=== PATIENT | male | born 1970 | race Caucasian/White ===

== ENCOUNTER → 2019-08-05 | Outpatient (CLI) | payer MEDICARE ==
--- NOTE | 2019-08-05 10:30 | RAD ---
Ultrasound of the abdomen 08/05/2019 CLINICAL HISTORY: Right upper quadrant abdominal pain. Nausea and vomiting. TECHNIQUE: A real-time ultrasound examination of the abdomen was performed. Multiple images were obtained. FINDINGS: The gallbladder is contracted and filled with echogenic gallstones. The gallbladder wall thickness is difficult to evaluate due to the contracted nature of the gallbladder. No pericholecystic fluid is seen. The liver is mildly enlarged measuring 21.1 cm in length. Increased echogenicity of the liver parenchyma is seen consistent with fatty infiltration. The common bile duct is not visualized due to the patient's body habitus and overlying bowel gas. No intra or extrahepatic biliary ductal dilatation is seen. The spleen is normal in size measuring 12.9 cm in length. Both kidneys are within normal limits in size and echogenicity. The pancreas is not well evaluated due to overlying bowel gas. The visualized abdominal aorta tapers normally. The inferior vena cava is within normal limits. No free fluid is seen. IMPRESSION: 1. Cholelithiasis. 2. Mild hepatomegaly. Fatty infiltration of the liver. Electronically signed by: Rolo Eckert MD (08/05/2019 10:27 AM) [id number]
== END | disposition home or self-care (01) ==
LOC: US 09:47
PROVIDERS: ATTEND Physician Assistant
DX: K80.20 Calculus of gallbladder without cholecystitis without obstruction (principal); K76.0 Fatty (change of) liver, not elsewhere classified; R16.0 Hepatomegaly, not elsewhere classified
CPT/HCPCS: 76700

== ENCOUNTER 2019-10-14 11:22 | Emergency (ER) | payer MEDICARE ==
[~2019-10-14] VITALS: Ht 167.6 cm; Wt 88.0 kg
[2019-10-14] MEDS ORDERED: ONDANSETRON PF 4 MG/2 ML VIAL. IVP ONE (11:45)
[2019-10-14] MEDS ORDERED: FAMOTIDINE 20 MG/2 ML VIAL IVP ONE (11:45)
[2019-10-14] MEDS ORDERED: MVI, ADULT NO.4 WITH VIT K 10 ML, FOLIC ACID INJ 1 MG, THIAMINE INJ 100 MG in IV NORMAL... IV ONE ×4 (12:00)
--- NOTE | 2019-10-14 12:06 | PHYS DOC ---
General Adult EDM: Chief Complaint: NAUSEA/VOMITING/DIARRHEA HPI: HPI: 49-year-old male presents to the emergency department for tremors, nausea, vomiting, abdominal pain. Patient has recent history of gallbladder surgeries, stopping alcohol use, stopping other medication abuse. The patient was extremel y agitated at his home which frightened his . His called the police to come and help bring the patient to the emergency department because of his extremely high state of agitation and anxiety. Please accompanied the patient and his to the emergency department with the patient without custody. Presentation emergency department the patient is extremely anxious and tr emulous. He has vomited multiple times emergency department. He is extremely emotional with labile and tearful. He is accompanied by his who is also anxious. The patient complains of abdominal pain as well is most significant upon palpation. Patient states that he has not been able to keep any food down for the past 5 hours. Patient has no COVID-19 symptoms, but refuses to wear a mask. Patient has no previous seizures from alcohol withdrawal. Patient's last drink was last night, he does not state the exact amount that he drank last night. Patient repeatedly states that his "life is a wreck ". Review of Systems: Review of Systems: Constitutional: Patient is tremulous and anxious Eyes: Denies redness or eye pain HENT: Denies nasal congestion or sore throat Respiratory: Denies cough or shortness of breath Cardiovascular: Denies chest pain or palpitations GI: Reports abdominal pain : Denies dysuria or hematuria Musculoskeletal: Denies back pain or joint pain Integument: Denies rash or skin lesions Neurologic: Denies headache, focal weakness or sensory changes Complete systems were reviewed and found to be within normal limits, except as documented in this note. Current Medications: Current Meds: Current Medications Medications (Trade) Dose Ordered Sig/Sybil Start Time Stop Time Status Last Admin Dose Admin Famotidine (Pepcid Vial) 20 mg 1X ONCE 10/14/19 11:45 10/14/19 11:54 DC 10/14/19 11:48 20 MG Lorazepam (Ativan Inj) 0.5 mg 1X ONCE 10/14/19 12:00 10/14/19 12:01 Multivitamins/ Minerals 10 ml/ Folic Acid 1 mg/ Thiamine HCl 100 mg/Sodium Chloride 1,011.3 ml @ 1,000.187 mls/hr 1X ONCE 10/14/19 12:00 10/14/19 13:00 Ondansetron HCl (Zofran) 4 mg 1X ONCE 10/14/19 11:45 10/14/19 11:54 DC 10/14/19 11:48 4 MG Allergies: Allergies: Allergies Coded Allergies Type Severity Reaction Last Updated Verified shellfish derived Allergy Unknown 10/14/19 Yes Physical Exam: PE: Constitutional: Well developed, well nourished, no acute distress, non-toxic appearance. [] HENT: Normocephalic, atraumatic, bilateral external ears normal, oropharynx moist, no oral exudates, nose normal. [] Eyes: PERRLA, EOMI, conjunctiva normal, no discharge. [] Neck: Normal range of motion, no tenderness, supple, no stridor. [] Cardiovascular:Heart rate regular rhythm, no murmur [] Lungs & Thorax: Bilateral breath sounds clear to auscultation [] Abdomen: Bowel sounds normal, soft, no tenderness, no masses, no pulsatile masses. [] Skin: Warm, dry, no erythema, no rash. [] Back: No tenderness, no CVA tenderness. [] Extremities: No tenderness, no cyanosis, no clubbing, ROM intact, no edema. [] Neurologic: Alert and oriented X 3, normal motor function, normal sensory function, no focal deficits noted. [] Psychologic: Affect normal, judgement normal, mood normal. [] EKG: EKG: @1149, normal sinus rhythm, sinus tachycardia at 131 bpm. QRS paced 78, QT / QTC is 296/442. IA interval is 146 Radiology/Procedures: Radiology/Procedures: [] Course & Med Decision Making: Course & Med Decision Making Pertinent Labs and Imaging studies reviewed. (See chart for details) [] Dragon Disclaimer: Dragon Disclaimer: This electronic medical record was generated, in whole or in part, using a voice recognition dictation system. Departure Departure: Impression: Primary Impression: Alcohol abuse Additional Impressions: Anxiety Abdominal pain Qualified Codes: R10.84 - Generalized abdominal pain Nausea & vomiting Qualified Codes: R11.2 - Nausea with vomiting, unspecified Disposition: 01 HOME/RESIDENCE PRIOR TO ADM Condition: STABLE Referrals: SUZANNE PHILLIPS (PCP) BERNARD LA MD Patient Instructions: Abdominal Pain, Detz-dg-Mkye, Alcohol Withdrawal, Dwex-jc-Ecab, Nausea and Vomiting, Zczu-rt-Uxyg, Substance Abuse-Brief Scripts Chlordiazepoxide Hcl (CHLORDIAZEPOXIDE HCL) 25 Mg Capsule 25 MG PO DIRECTION for Alcohol withdrawal, #15 CAP Day 1: Take 50mg PO QID Day 2: Take 25mg PO QID Day 3: Take 25mg PO BID Day 4: Take 25mg QHS Prov: KARRIE PRATT DO 10/14/19 Pantoprazole Sodium (PROTONIX) 40 Mg Tablet.dr 1 TAB PO DAILY for Gastritis, #20 TAB Prov: KARRIE PRATT DO 10/14/19 Ondansetron (ONDANSETRON ODT) 4 Mg Tab.rapdis 1 TAB PO PRN Q6-8HRS PRN for NAUSEA, #16 TAB Prov: KARRIE PRATT DO 10/14/19 Justification of Admission: Justification of Admission: Justification of Admission Dx: N/A KARRIE PRATT DO Oct 14, 2019 12:06
[2019-10-14 12:34] LABS: BASO % 1 % (0-3); EOS % 0 % (0-3); HEMATOCRIT 50.3 % (39.0-53.0); HEMOGLOBIN 17.4 g/dL (13.0-17.5); LYMPH % 27 % (24-48); MEAN CORPUSCULAR HEMOGLOBIN 33 pg (25-35); MEAN CORPUSCULAR HGB CONC 35 g/dL (31-37); MEAN CORPUSCULAR VOLUME 94 fL (79-100); MONO # 0.3 x10^3/uL (0.0-1.1); MONO % 9 % (0-9); NEUT # 2.4 x10^3uL (1.8-7.7); NEUT % 63 % (31-73); PLATELET COUNT 242 x10^3/uL (140-400); RED BLOOD COUNT 5.34 x10^6/uL (4.30-5.70); RED CELL DISTRIBUTION WIDTH 16.5 % (11.5-14.5); WHITE BLOOD COUNT 3.8 x10^3/uL (4.0-11.0)
[2019-10-14 12:37] LABS: CALCIUM 8.8 mg/dL (8.5-10.1); CREATININE 1.2 mg/dL (0.7-1.3); GFR 64.1; POTASSIUM 3.7 mmol/L (3.5-5.1)
[2019-10-14 12:49] LABS: AMPHETAMINE/METHAMPHETAMINE NEG (NEG); BARBITURATES NEG (NEG); BENZODIAZEPINES NEG (NEG); CANNABINOIDS POS (NEG); COCAINE NEG (NEG); METHADONE NEG (NEG); OPIATES NEG (NEG); PHENCYCLIDINE NEG (NEG)
[2019-10-14 12:53] LABS: ALBUMIN 4.2 g/dL (3.4-5.0); ALBUMIN/GLOBULIN RATIO 1.1 (1.0-1.7); TOTAL BILIRUBIN 0.9 mg/dL (0.2-1.0); TOTAL PROTEIN 7.9 g/dL (6.4-8.2)
[2019-10-14 12:57] LABS: BILIRUBIN,URINE NEG (NEG); CLARITY,URINE HAZY; COLOR,URINE AMBER; GLUCOSE,URINE NEG (NEG); NITRITE,URINE NEG (NEG); UROBILINOGEN,URINE 0.2 mg/dL (0.2 mg/dL)
[2019-10-14 12:58] LABS: BACTERIA,URINE FEW /HPF (0-FEW); GRANULAR CASTS,URINE OCC /HPF; HYALINE CASTS, URINE MOD /HPF; SQUAMOUS EPITHELIAL CELL,UR FEW /LPF
--- NOTE | 2019-10-14 13:08 | RAD ---
EXAM: CT ABDOMEN/PELVIS WITHOUT CONTRAST. HISTORY: Abdominal pain. TECHNIQUE: Computed tomography of the abdomen and pelvis was performed without intravenous contrast. One or more of the following individualized dose reduction techniques were utilized for this examination: 1. Automated exposure control. 2. Adjustment of the mA and/or kV according to patient size. 3. Use of iterative reconstruction technique. COMPARISON: None. FINDINGS: Lung windows through the visualized portions of the bases reveal mild bronchial wall thickening in the bases. Bone windows reveal no suspicious lesions. Changes of disc replacement are noted at L4-5 and L5-S1. The gallbladder is surgically absent. Multiple calcifications lateral to the descending portion of the duodenum suggest stones within the cystic duct or extraluminal stones. Others are seen posterior to the caudate lobe. Diffuse hepatic steatosis is severe. The pancreas, spleen, adrenal glands and kidneys are unremarkable. There are no pathologically enlarged lymph nodes. Fat density within the wall of the ascending and transverse colon suggests chronic inflammation. There is no small bowel obstruction. The appendix is not inflamed. 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 IMPRESSION: 1. Findings consistent with retained gallstones within either the cystic duct, versus within the cholecystectomy bed. Others are posterior to the caudate lobe. 2. Severe diffuse hepatic steatosis. 3. Fatty infiltration of the ascending and transverse colon is nonspecific but may reflect chronic inflammation. Electronically signed by: Justus Alston MD (10/14/2019 1:06 PM) [id number]
[2019-10-14 13:40] VITALS: BP 139/95
[2019-10-14] MEDS ORDERED: CHLO25CA9 PO (14:07)
[2019-10-14] MEDS ORDERED: ONDA4TAB12 PO (14:07)
[2019-10-14] MEDS ORDERED: PANT40TA3 PO (14:07)
--- NOTE | 2019-10-14 15:38 | EKG ---
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
== END 2019-10-14 14:14 | disposition home or self-care (01) ==
LOC: ER 11:22
DX: F10.20 Alcohol dependence, uncomplicated (principal); F41.9 Anxiety disorder, unspecified; R10.84 Generalized abdominal pain; R11.2 Nausea with vomiting, unspecified; Z91.013 Allergy to seafood; Y90.8 Blood alcohol level of 240 mg/100 ml or more
CPT/HCPCS: 36415; 74176; 80053; 80307; 81001; 82553; 83690; 84484; 85025; 85610; 85730; 93005; 96365; 96375; 96376; 99285; G0480; J2060; J2405; J3490; J7030

== ENCOUNTER 2020-05-02 11:31 | Emergency (ER) | payer MEDICARE ==
[~2020-05-02] VITALS: Ht 167.6 cm; Wt 97.8 kg
[~2020-05-02 11:31] MED LIST: CHLO25CA9 PO; ONDA4TAB12 PO; PANT40TA3 PO
--- NOTE | 2020-05-02 12:26 | PHYS DOC ---
Past History Past Medical History: Alcoholism, Diabetes, GERD, Hypertension, Hyperthyroid Past Surgical History: Cholecystectomy Additional Past Surgical Histo: knee, back Smoking: Non-smoker Alcohol Use: Heavy Drug Use: Marijuana General Adult EDM: Chief Complaint: SHORTNESS OF BREATH HPI: HPI: Patient is a 49-year-old male who presents with cough, body aches, intermittent shortness of breath for the last 8 days. Patient states he tested positive for Covid 8 days ago. Patient reports symptoms are worse in the morning and has been taking Aleve and DayQuil for symptom relief. Denies nausea/vomiting/diarrhea. Denies chest pain. Review of Systems: Review of Systems: Constitutional: Denies fever or chills Eyes: Denies change in visual acuity HENT: Denies nasal congestion or sore throat Respiratory: Reports productive cough and intermittent shortness of breath Cardiovascular: Denies chest pain or edema GI: Denies abdominal pain, nausea, vomiting, bloody stools or diarrhea : Denies dysuria Musculoskeletal: Denies back pain or joint pain Integument: Denies rash Neurologic: Denies headache, focal weakness or sensory changes Endocrine: Denies polyuria or polydipsia Lymphatic: Denies swollen glands Psychiatric: Denies depression or anxiety Allergies: Allergies: Allergies Coded Allergies Type Severity Reaction Last Updated Verified shellfish derived Allergy Unknown 10/14/19 Yes Physical Exam: PE: Constitutional: Well developed, well nourished, no acute distress, non-toxic appearance. [] HENT: Normocephalic, atraumatic, bilateral external ears normal, oropharynx moist, no oral exudates, nose normal. [] Eyes: PERRLA, EOMI, conjunctiva normal, no discharge. [] Neck: Normal range of motion, no tenderness, supple, no stridor. [] Cardiovascular:Heart rate regular rhythm, no murmur [] Lungs & Thorax: Bilateral breath sounds clear to auscultation [] Abdomen: Bowel sounds normal, soft, no tenderness, no masses, no pulsatile masses. [] Skin: Warm, dry, no erythema, no rash. [] Back: No tenderness, no CVA tenderness. [] Extremities: No tenderness, no cyanosis, no clubbing, ROM intact, no edema. [] Neurologic: Alert and oriented X 3, normal motor function, normal sensory funct ion, no focal deficits noted. [] Psychologic: Affect normal, judgement normal, mood normal. [] Current Patient Data: Labs: Laboratory Tests Test 05/02/20 12:19 Glucose (Fingerstick) 110 mg/dL (70-99) H Vital Signs: Vital Signs Date Time Temp Pulse Resp B/P (MAP) Pulse Ox O2 Delivery O2 Flow Rate FiO2 05/02/20 12:07 97.8 81 16 133/87 (102) 98 Room Air EKG: EKG: [] Radiology/Procedures: Radiology/Procedures: []XR CHEST 1V History: Reason: DIZZINESS / Spl. Instructions: / History: Comparison: April 15, 2017 Findings: Multifocal ill-defined opacities bilaterally. No pleural effusion. No pneumotho rax. Normal heart size. Impression: 1. Multifocal ill-defined opacities bilaterally, concerning for pneumonia including viral pneumonia. Recommend follow-up to ensure resolution. Electronically signed by: Dino Powers DO (05/02/2020 1:24 PM) [facility] EXAM: CT angiography of the chest with intravenous contrast. HISTORY: Shortness of breath. Cough. TECHNIQUE: Computed tomographic images of the chest were obtained following the administration of intravenous contrast according to angiography protocol. Multiplanar reformatting was performed and three dimensional maximum intensity projection images were obtained. *One or more of the following individualized dose reduction techniques were utilized for this examination: 1. Automated exposure control. 2. Adjustment of the mA and/or kV according to patient size. 3. Use of iterative reconstruction technique. COMPARISON: 04/15/2017. FINDINGS: There is no convincing pulmonary embolism. Evaluation for distal pulmonary emboli is limited due to motion. The heart is normal in size. The aorta is normal in caliber. There are prominent mediastinal and bilateral hilar lymph nodes. These are likely reactive in etiology given presence of multifocal groundglass infiltrate within the bilateral upper and lower lobes and right middle lobe. There is no pleural effusion or pneumothorax. There is no acute finding involving the upper abdomen. The spleen is mildly enlarged. The gallbladder is absent. There is no suspicious osseous lesion. IMPRESSION: 1. No convincing pulmonary emphysema. Evaluation for distal pulmonary emboli is limited due to motion. 2. Scattered groundglass infiltrate throughout both lungs. This likely due to atypical pneumonia. Follow-up to confirm resolution. 3. Suspected reactive mediastinal and hilar lymphadenopathy. 4. Mild splenomegaly. This may be within physiologic limits for patient body habitus. Electronically signed by: Dionne Jimenez MD (05/02/2020 2:20 PM) [id number] Heart Score: C/O Chest Pain: No Risk Factors: Risk Factors: DM, Current or recent (<one month) smoker, HTN, HLP, family history of CAD, obesity. Risk Scores: Score 0 - 3: 2.5% MACE over next 6 weeks - Discharge Home Score 4 - 6: 20.3% MACE over next 6 weeks - Admit for Clinical Observation Score 7 - 10: 72.7% MACE over next 6 weeks - Early Invasive Strategies Course & Med Decision Making: Course & Med Decision Making Pertinent Labs and Imaging studies reviewed. (See chart for details) Chest x-ray shows multifocal ill-defined opacities bilaterally. No pleural effusion. No pneumothorax. D-dimer 0.74. CTA ordered to rule out PE. CTA is negative for PE. Sending patient home with antibiotic for pneumonia and Medrol Dosepak. Patient to continue to treat symptoms at home ibuprofen and Mucinex. Patient is to return to emergency room with worsening symptoms or concerns. Patient is hemodynamically stable. Dragon Disclaimer: José Manuel Disclaimer: This electronic medical record was generated, in whole or in part, using a voice recognition dictation system. Departure Departure: Impression: Primary Impression: Pneumonia Qualified Codes: J18.9 - Pneumonia, unspecified organism Additional Impression: COVID-19 Disposition: 01 DC HOME SELF CARE/HOMELESS Condition: STABLE Referrals: SUZANNE PHILLIPS (PCP) Patient Instructions: Pneumonia, Adult Additional Instructions: You were seen in the emergency room today for a Covid and a cough. Continue to take ibuprofen at home for discomfort. I am sending you home with antibiotics and also steroids. If you have an increase in shortness of breath or have worsening symptoms please return to the emergency room. Otherwise you may follow-up with your PCP. EMERGENCY DEPARTMENT GENERAL DISCHARGE INSTRUCTIONS Thank you for coming to [facility] (ED) today and trusting us with you care. We trust that you had a positivie experience in our Emergency Department. If you wish to speak to the department management, you may call the director at [phone]. YOUR FOLLOW UP INSTRUCTIONS ARE FOLLOWS: 1. Do you have a private Doctor? If you do not have a private doctor, please ask for a resource list of physicians or clinics that may be able to assist you with follow up care. 2. The Emergency Physician has interpreted your x-rays. The X-Ray specialist will also review them. If there is a change in the findings, you will be notified in 48 hours when at all possible. 3. A lab test or culture has been done, your results will be reviewed and you will be notified if you need a change in treatment. ADDITIONAL INSTRUCTIONS AND INFORMATION: 1. Your care today has been supervised by a physician who is specially trained in emergency care. Many problems require more than one evaluation for a complete diagnosis and treatment. We recommend that you schedule your follow up appointment as recommended to ensure complete treatment of you illness or injury. If you are unable to obtain follow up care and continue to have a problem, or if your condition worsens, we recommend that you return to the ED. 2. We are not able to safely determine your condition over the phone nor are we able to give sound medical advice over the phone. For these safety reasons, if you call for medical advice we will ask you to come to the ED for further evaluation. 3. If you have any questions regarding these discharge instructions please call the ED at [phone]. SAFETY INFORMATION: In the interest of safety, wellness, and injury prevention; we encourage you to wear your sealbelt, if you smoke; quite smoking, and we encourage family to use a protective helmet for bicycling and other sporting events that present an increased risk for head injury. IF YOUR SYMPTOMS WORSEN OR NEW SYMPTOMS DEVELOP, OR YOU HAVE CONCERNS ABOUT YOUR CONDITION; OR IF YOUR CONDITION WORSENS WHILE YOU ARE WAITING FOR YOUR FOLLOW UP APPOINTMENT; EITHER CONTACT YOUR PRIMARY CARE DOCTOR, THE PHYSICIAN WHOSE NAME AND NUMBER YOU WERE GIVEN, OR RETURN TO THE ED IMMEDIATELY. Scripts Methylprednisolone (MEDROL) 4 Mg Tab.ds.pk 1 PKG PO UD for inflammation for 6 Days, #1 PKG 0 Refills Prov: EMMA SHELLEY APRN 05/02/20 Amoxicillin/Potassium Clav (AMOX TR-K CLV 875-125 MG TAB) 1 Each Tablet 1 TAB PO BID for infection for 5 Days, #10 TAB Prov: EMMA SHELLEY APRN 05/02/20 EMMA SHELLEY APRN May 02, 2020 12:26
[2020-05-02 13:05] LABS: CREATININE 1.1 mg/dL (0.7-1.3); GFR 70.9; POTASSIUM 4.6 mmol/L (3.5-5.1)
[2020-05-02 13:10] LABS: ALBUMIN 3.7 g/dL (3.4-5.0); ALBUMIN/GLOBULIN RATIO 1.2 (1.0-1.7); TOTAL BILIRUBIN 0.8 mg/dL (0.2-1.0); TOTAL PROTEIN 6.8 g/dL (6.4-8.2)
[2020-05-02 13:17] LABS: BASO % 0 % (0-3); EOS % 0 % (0-3); HEMOGLOBIN 16.9 g/dL (13.0-17.5); LYMPH # 0.5 x10^3/uL (1.0-4.8); LYMPH % 17 % (24-48); MEAN CORPUSCULAR HEMOGLOBIN 29 pg (25-35); MEAN CORPUSCULAR HGB CONC 34 g/dL (31-37); MEAN CORPUSCULAR VOLUME 85 fL (79-100); MONO # 0.3 x10^3/uL (0.0-1.1); MONO % 11 % (0-9); NEUT # 2.2 x10^3uL (1.8-7.7); NEUT % 72 % (31-73); PLATELET COUNT 109 x10^3/uL (140-400); RED BLOOD COUNT 5.89 x10^6/uL (4.30-5.70); RED CELL DISTRIBUTION WIDTH 13.5 % (11.5-14.5); WHITE BLOOD COUNT 3.1 x10^3/uL (4.0-11.0)
--- NOTE | 2020-05-02 13:27 | RAD ---
XR CHEST 1V History: Reason: DIZZINESS / Spl. Instructions: / History: Comparison: April 15, 2017 Findings: Multifocal ill-defined opacities bilaterally. No pleural effusion. No pneumothorax. Normal heart size . Impression: 1. Multifocal ill-defined opacities bilaterally, concerning for pneumonia including viral pneumonia. Recommend follow-up to ensure resolution. Electronically signed by: Dino Powers DO (05/02/2020 1:24 PM) [facility]
[2020-05-02] MEDS ORDERED: IOHEXOL 350 MG/ML 100 ML VIAL. IV ONE (13:45)
[2020-05-02] MEDS ORDERED: DEXAMETHASONE SOD PHOS 10 MG/ML VIAL. IVP ONE (13:45)
--- NOTE | 2020-05-02 14:22 | RAD ---
EXAM: CT angiography of the chest with intravenous contrast. HISTORY: Shortness of breath. Cough. TECHNIQUE: Computed tomographic images of the chest were obtained following the administration of int ravenous contrast according to angiography protocol. Multiplanar reformatting was performed and three dimensional maximum intensity projection images were obtained. *One or more of the following individualized dose reduction techniques were utilized for this examina tion: 1. Automated exposure control. 2. Adjustment of the mA and/or kV according to patient size. 3. Use of iterative reconstruction technique. COMPARISON: 04/15/2017. FINDINGS: There is no convincing pulmonary embolism. Evaluation for distal pulmonary emboli is limite d due to motion. The heart is normal in size. The aorta is normal in caliber. There are prominent med iastinal and bilateral hilar lymph nodes. These are likely reactive in etiology given presence of mul tifocal groundglass infiltrate within the bilateral upper and lower lobes and right middle lobe. Ther e is no pleural effusion or pneumothorax. There is no acute finding involving the upper abdomen. The spleen is mildly enlarged. The gallbladder is absent. There is no suspicious osseous lesion. IMPRESSION: 1. No convincing pulmonary emphysema. Evaluation for distal pulmonary emboli is limited due to motion . 2. Scattered groundglass infiltrate throughout both lungs. This likely due to atypical pneumonia. Fol low-up to confirm resolution. 3. Suspected reactive mediastinal and hilar lymphadenopathy. 4. Mild splenomegaly. This may be within physiologic limits for patient body habitus. Electronically signed by: Dionne Jimenez MD (05/02/2020 2:20 PM) [id number]
[2020-05-02 14:38] VITALS: BP 138/84
[2020-05-02] MEDS ORDERED: METH4TAB2 PO (14:59)
[2020-05-02] MEDS ORDERED: AMOX1TAB11 PO (14:59)
--- NOTE | 2020-05-02 15:11 | EKG ---
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
== END 2020-05-02 15:23 | disposition home or self-care (01) ==
LOC: ER 11:31
DX: U07.1 COVID-19 (principal); J12.82 Pneumonia due to coronavirus disease 2019; E11.9 Type 2 diabetes mellitus without complications; K21.9 Gastro-esophageal reflux disease without esophagitis; I10 Essential (primary) hypertension; E05.90 Thyrotoxicosis, unspecified without thyrotoxic crisis or storm; F10.20 Alcohol dependence, uncomplicated; Z91.013 Allergy to seafood; Y90.9 Presence of alcohol in blood, level not specified
CPT/HCPCS: 36415; 71045; 71275; 80053; 82550; 82947; 83605; 83615; 84484; 85025; 85379; 86140; 93005; 96374; 99285; J1100; Q9967

== ENCOUNTER → 2020-12-08 | Outpatient (CLI) | payer MEDICARE ==
[~2020-12-08] MED LIST changes: +AMOX1TAB11 PO; +METH4TAB2 PO
[2020-12-08 13:07] LABS: BASO % 0 % (0-3); EOS % 1 % (0-3); HEMATOCRIT 49.3 % (39.0-53.0); HEMOGLOBIN 16.7 g/dL (13.0-17.5); LYMPH # 1.2 x10^3/uL (1.0-4.8); LYMPH % 24 % (24-48); MEAN CORPUSCULAR HEMOGLOBIN 29 pg (25-35); MEAN CORPUSCULAR HGB CONC 34 g/dL (31-37); MEAN CORPUSCULAR VOLUME 85 fL (79-100); MONO # 0.5 x10^3/uL (0.0-1.1); MONO % 9 % (0-9); NEUT # 3.3 x10^3uL (1.8-7.7); NEUT % 65 % (31-73); PLATELET COUNT 182 x10^3/uL (140-400); RED BLOOD COUNT 5.78 x10^6/uL (4.30-5.70); RED CELL DISTRIBUTION WIDTH 14.3 % (11.5-14.5); WHITE BLOOD COUNT 5.1 x10^3/uL (4.0-11.0)
[2020-12-08 13:17] LABS: ALBUMIN 3.9 g/dL (3.4-5.0); ALBUMIN/GLOBULIN RATIO 1.2 (1.0-1.7); BACTERIA,URINE 0 /HPF (0-FEW); BILIRUBIN,URINE NEG (NEG); C REACTIVE PROTEIN 0.5 mg/L (0-3.3); CALCIUM 9.3 mg/dL (8.5-10.1); CLARITY,URINE CLEAR; COLOR,URINE AMBER; CREATININE 0.8 mg/dL (0.7-1.3); GFR 101.9; GLUCOSE,URINE NEG (NEG); NITRITE,URINE NEG (NEG); POTASSIUM 3.9 mmol/L (3.5-5.1); RBC,URINE RARE /HPF (0-2); SQUAMOUS EPITHELIAL CELL,UR OCC /LPF; TOTAL BILIRUBIN 1.1 mg/dL (0.2-1.0); TOTAL PROTEIN 7.2 g/dL (6.4-8.2); UROBILINOGEN,URINE 0.2 mg/dL (0.2 mg/dL); WBC,URINE RARE /HPF (0-4)
[2020-12-08 14:12] LABS: SEDIMENTATION RATE 1 (0-15)
[2020-12-09 03:12] LABS: HEMOGLOBIN A1C 6.1 % (4.8-5.6)
[2020-12-09 11:41] LABS: FREE T4 1.1 ng/dL (0.76-1.46); THYROID STIM HORMONE (TSH) 1.012 uIU/mL (0.358-3.740)
[2020-12-14 09:21] LABS: TESTOSTERONE FREE 16.45 ng/dL (5.00-21.00); TESTOSTERONE TOTAL 573 ng/dL (264-916)
== END ==
LOC: LAB 10:58
PROVIDERS: ATTEND Family Medicine
DX: U07.1 COVID-19 (principal); Z12.5 Encounter for screening for malignant neoplasm of prostate; I10 Essential (primary) hypertension; K21.9 Gastro-esophageal reflux disease without esophagitis; E66.9 Obesity, unspecified; R05.9 Cough, unspecified; E03.9 Hypothyroidism, unspecified; E29.1 Testicular hypofunction; Z86.16 Personal history of COVID-19; Z86.39 Personal history of other endocrine, nutritional and metabolic disease
CPT/HCPCS: 36415; 80053; 80061; 81001; 83036; 84402; 84403; 84439; 84443; 85025; 85651; 86140; 86769; 86803; G0103